=== PATIENT | male | born 2000 | race Caucasian/White ===

== ENCOUNTER 2021-01-08 18:35 | Observation (INO) ==
[2021-01-08] MEDS ORDERED: AMPICILLIN/SULBACTAM SOD 3,000 MG in 0.9 % SODIUM CHLORIDE 100 ML IV STA (22:31)
[2021-01-08] MEDS ORDERED: dexAMETHasone**PF** 10 MG/ML VIAL IV ONE (22:31)
[2021-01-08] MEDS ORDERED: KETOROLAC 30 MG/ML VIAL IV STA (22:31)
--- NOTE | 2021-01-08 22:34 | Emergency Department Note ---
History of Present Illness General Chief complaint: Neck Injury/Pain Stated complaint: SWELLING OF NECK AFTER FINISHING STEROID Time Seen by Provider: 01/08/21 22:20 History of Present Illness Maximum Pain Intensity: 7 This is a 20-year-old male presenting to the emergency department for evaluation of worsening right-sided neck swelling. The patient reports that he had a diagnosis of mono 2 weeks ago. He developed right-sided swelling to the neck, and was seen at an emergency room closer to home in [place] as it was [facility]. The patient was transferred to [facility] where he was admitted. During his inpatient stay he did have CT scan of the neck which evidently showed a necrotic mass. They did aspirate this and sent for culture, but the patient has not been contacted with any culture results. The patient did improve after the hospitalization with oral Augmentin and steroids. He finished the steroids yesterday and now his swelling has returned. He has not had distinct fever or difficulty swallowing. No chest or abdominal pain is reported. He rates his current discomfort a 7/10. Home Medications Medication Instructions Recorded Confirmed Type Amoxicillan Clavulanic Acid 1 tab PO BID 01/09/21 01/09/21 History ibuprofen 200 mg tablet 400 mg PO Q6H PRN 01/09/21 01/09/21 History Allergies Allergy/AdvReac Type Severity Reaction Status Date / Time No Known Allergies Allergy Unverified 01/09/21 01:59 Past Med/Surg History Medical History No chronic diseases present Surgical History No significant past surgical history Social History Smoking Status: Never smoker Preferred Language: Peruvian Feels Safe at Home: Yes Review of Systems A total of 10 systems reviewed and were otherwise negative Physical Exam Vital Signs Vital Signs - 24 hr 01/08/21 18:40 01/08/21 22:24 01/08/21 23:27 Temperature 36.6 C Temperature Source Temporal Artery Scan Pulse Rate 90 Pulse Rate [Finger] 114 H 81 Pulse Rhythm Regular Pulse Strength Normal Respiratory Rate 20 18 18 Respiratory Effort / Characteristics Non-Labored Spontaneous Non-Labored Spontaneous Respiratory Depth Normal Normal Respiratory Pattern Regular Blood Pressure 126/56 L Blood Pressure [Right Arm] 126/73 126/64 Blood Pressure Mean 79 Blood Pressure Mean [Right Arm] 90 84 Blood Pressure Position Sitting Pulse Oximetry 99 94 97 Oxygen Delivery Method Room Air Room Air Room Air Sepsis Recent Fever Within 48 Hours No Sepsis New/Unexplained Change in Mental Status No Sepsis Action Taken by Nursing No Action Required 01/09/21 00:26 01/09/21 02:18 Temperature Temperature Source Pulse Rate Pulse Rate [Finger] 75 65 Pulse Rhythm Pulse Strength Respiratory Rate 20 16 Respiratory Effort / Characteristics Non-Labored Spontaneous Respiratory Depth Normal Normal Respiratory Pattern Blood Pressure Blood Pressure [Right Arm] 135/63 124/62 Blood Pressure Mean Blood Pressure Mean [Right Arm] 87 82 Blood Pressure Position Pulse Oximetry 96 95 Oxygen Delivery Method Room Air Room Air Sepsis Recent Fever Within 48 Hours Sepsis New/Unexplained Change in Mental Status Sepsis Action Taken by Nursing VITALS: Vitals are noted on the nurse's note and reviewed by myself. Vital signs stable. GENERAL: Well-developed, well-nourished, white male, who is in no acute distress and resting comfortably. Patient is cooperative with the examination. HEAD: Normocephalic atraumatic. MOUTH: Mucous membranes moist. Tonsils are not enlarged. Pharynx without erythema, blood, or exudate. Uvula midline. Airway patent. NECK: Very impressive swelling/mass to the right lateral and anterior aspect of the neck. This is somewhat firm and mildly tender without significant erythema. HEART: Regular rate and rhythm without murmurs gallops or rubs. LUNGS: Clear to auscultation bilaterally without wheezes, rales or rhonchi. No retractions or accessory muscle use. ABDOMEN: Positive normal bowel sounds x 4. Soft, nontender, without masses or organomegaly. No guarding or rebound tenderness. MUSCULOSKELETAL: No muscle atrophy, erythema, or edema noted. Full range of motion in all extremities. NEURO: Patient was alert and oriented to person place and time. CN II through XII grossly intact. Course Administered Medications Discontinued Medications Dexamethasone Sodium Phosphate (DexamethasonePf 10 Mg/Ml Vial) 10 mg IV NOW ONE Stop: 01/08/21 22:32 Last Admin: 01/08/21 23:17 Dose: 10 mg Documented by: [id number] Ampicillin Sodium/Sulbactam Sodium 3,000 mg/ Sodium Chloride 108 mls @ 200 mls/hr IV NOW STA; Protocol Stop: 01/08/21 23:03 Last Infusion: 01/09/21 00:09 Dose: 0 mls/hr Documented by: [id number] Admin: 01/08/21 23:24 Dose: 200 mls/hr Documented by: [id number] Sodium Chloride (Nss 1000ml) 1,000 mls @ 999 mls/hr IV .Q1H1M RANJAN Stop: 01/09/21 00:32 Last Infusion: 01/09/21 01:30 Dose: 0 mls/hr Documented by: [id number] Admin: 01/09/21 00:26 Dose: 999 mls/hr Documented by: [id number] Infusion: 01/09/21 00:17 Dose: 999 mls/hr Documented by: [id number] Admin: 01/08/21 23:16 Dose: 999 mls/hr Documented by: [id number] Ioversol (Optiray 320 100ml) 95 ml IV ONCE ONE Stop: 01/09/21 00:15 Last Admin: 01/09/21 00:08 Dose: 95 ml Documented by: [id number] Ketorolac Tromethamine (Ketorolac 30 Mg/Ml Vial) 30 mg IV NOW STA Stop: 01/08/21 22:32 Last Admin: 01/08/21 23:18 Dose: 30 mg Documented by: [id number] Medical Decision Making Differential Diagnosis Differential diagnosis includes: Etiologies such as cellulitis, abscess, osteomyelitis, MRSA infection, DVT, ne crotizing fasciitis, dermatitis, drug eruption, as well as others were entertained Laboratory Data Result diagrams: 01/08/21 23:02 01/08/21 23:02 Lab Results 01/08/21 01/08/21 01/08/21 Range/Units 23:02 23:02 23:02 WBC 17.06 H (4.8-10.8) K/uL RBC 4.91 (4.7-6.1) M/uL Hgb 14.3 (14.0-18.0) g/dL Hct 43.9 (42-52) % MCV 89.4 (80-100) fL MCH 29.1 (25-34) pg MCHC 32.6 (32-36) g/dL RDW Std Deviation 41.7 (36.4-46.3) fL RDW Coeff of Fitz 12.8 (11.5-14.5) % Plt Count 347 (130-400) K/uL MPV 9.2 (7.4-10.4) fL Neutrophils % (Manual) 71.9 % Lymphocytes % (Manual) 5.3 % Reactive Lymphs % (Man) 14.0 % Monocytes % (Manual) 6.1 % Eosinophils % (Manual) 1.8 % Basophils % (Manual) 0.9 % Neutrophils # (Manual) 12.27 H (1.4-6.5) K/uL Total Absolute Neuts 12.27 H (1.4-6.5) K/uL Lymphocytes # (Manual) 0.90 L (1.2-3.4) K/uL Reactive Lymphs # 2.39 K/uL Total Abs Lymphocytes 3.29 (1.2-3.4) K/uL Monocytes # (Manual) 1.04 H (0.11-0.59) K/uL Eosinophils # (Manual) 0.31 (0-0.5) K/uL Basophils # (Manual) 0.15 (0-0.2) K/uL RBC Morphology Unremarkable Sodium 135 L (136-145) mmol/L Potassium 3.9 (3.5-5.1) mmol/L Chloride 102 (98-107) mmol/L Carbon Dioxide 26 (21-32) mmol/L Anion Gap 7.0 (3-11) BUN 12 (7-18) mg/dl Creatinine 0.88 (0.6-1.4) mg/dl Est Cr Clr Drug Dosing 155.8 ml/min Est GFR ( Amer) 144.3 ml/min Est GFR (Non-Af Amer) 124.5 ml/min BUN/Creatinine Ratio 13.4 (10-20) Glucose 92 (70-99) mg/dl Lactate 1.3 (0.4-2.0) mmol/L Calcium 9.7 (8.5-10.1) mg/dl Total Bilirubin 0.3 (0.2-1) mg/dl AST 10 L (15-37) U/L ALT 25 (12-78) Alkaline Phosphatase 92 (45-117) U/L Total Protein 8.9 H (6.4-8.2) gm/dl Albumin 3.7 (3.4-5.0) gm/dl Globulin 5.2 H (2.5-4.0) gm/dl Albumin/Globulin Ratio 0.7 L (0.9-2) TSH 3.940 (0.300-4.500) uIu/ml Monoscreen (Negative) SARS-CoV-2, RNA, NAAT (NEGATIVE) 01/08/21 01/09/21 Range/Units 23:02 02:19 WBC (4.8-10.8) K/uL RBC (4.7-6.1) M/uL Hgb (14.0-18.0) g/dL Hct (42-52) % MCV (80-100) fL MCH (25-34) pg MCHC (32-36) g/dL RDW Std Deviation (36.4-46.3) fL RDW Coeff of Fitz (11.5-14.5) % Plt Count (130-400) K/uL MPV (7.4-10.4) fL Neutrophils % (Manual) % Lymphocytes % (Manual) % Reactive Lymphs % (Man) % Monocytes % (Manual) % Eosinophils % (Manual) % Basophils % (Manual) % Neutrophils # (Manual) (1.4-6.5) K/uL Total Absolute Neuts (1.4-6.5) K/uL Lymphocytes # (Manual) (1.2-3.4) K/uL Reactive Lymphs # K/uL Total Abs Lymphocytes (1.2-3.4) K/uL Monocytes # (Manual) (0.11-0.59) K/uL Eosinophils # (Manual) (0-0.5) K/uL Basophils # (Manual) (0-0.2) K/uL RBC Morphology Sodium (136-145) mmol/L Potassium (3.5-5.1) mmol/L Chloride (98-107) mmol/L Carbon Dioxide (21-32) mmol/L Anion Gap (3-11) BUN (7-18) mg/dl Creatinine (0.6-1.4) mg/dl Est Cr Clr Drug Dosing ml/min Est GFR ( Amer) ml/min Est GFR (Non-Af Amer) ml/min BUN/Creatinine Ratio (10-20) Glucose (70-99) mg/dl Lactate (0.4-2.0) mmol/L Calcium (8.5-10.1) mg/dl Total Bilirubin (0.2-1) mg/dl AST (15-37) U/L ALT (12-78) Alkaline Phosphatase (45-117) U/L Total Protein (6.4-8.2) gm/dl Albumin (3.4-5.0) gm/dl Globulin (2.5-4.0) gm/dl Albumin/Globulin Ratio (0.9-2) TSH (0.300-4.500) uIu/ml Monoscreen Positive A (Negative) SARS-CoV-2, RNA, NAAT NEGATIVE (NEGATIVE) Imaging Data Radiologist's Impression: Preliminary Findings Only See Final Report For Complete Findings CT NECK: Impression: Enlarged right sternocleidomastoid muscle with internal rim-enhancing fluid collection measuring 4.1 x 4.5 x 5.7 cm. This most likely represents myositis with an intramuscular abscess. Clinical correlation is recommended. Cervical lymphadenopathy is seen bilaterally, right greater than left. There is mass effect in the right internal jugular vein which appears patent. However, the right external jugular vein is not well seen which may be related to compression or occlusion/thrombophlebitis. The airway is widely patent. Radiologist:Yordy Castro, [facility]:[phone] [facility] Narrative Physical exam and history were performed. Nursing notes, EMR, and Medication List were personally reviewed. Patient appears to have impressive swelling of the right side of his neck. He has been seen at multiple hospitals for this, and his symptoms seem to have worsened after he completed a Medrol Dosepak yesterday. IV access was esta blished and labs were obtained. He was hydrated with normal saline and given IV Toradol and IV Decadron. He was treated with IV Unasyn as well. Blood cultures were gathered. Case was discussed with my attending physician, Dr. Jackson, and patient was sent to CT scan for further evaluation. Patient's blood work is as above and was reviewed. He does have an elevated white blood cell count of 17,000. He does not have significant anemia or gross electrolyte imbalance. Coffee is positive. Covid is negative. Remaining blood work is fairly unremarkable. CT scan is as above and was reviewed by myself and radiology. He essentially has what seems to be a rim-enhancing 4 x 4.5 x 6 cm fluid collection concerning for abscess. Based on his information from [facility], this seems to be an increase from where he was about a week ago. I did discuss the case with on-call ENT, Dr. Goodwin, and no emergent procedural intervention is felt to be necessary at this time. Overall the patient does not appear well for discharge. He does have what is concerning for a right-sided abscess in the neck that is increasing in size despite outpatient Augmentin and steroids. The case was discussed with the on-call hospitalist team who did agree to evaluate the patient here in the department. Please see their dictation for further patient course, plan, disposition. The chart was completed utilizing be2 Speech Voice Recognition Software. Grammatical errors, random word insertions, pronoun errors, and incomplete sentences are an occasional consequence of this system due to software limitations, ambient noise, and hardware issues. Any formal questions or concerns about the content, text, or information contained within the body of this dictation should be directly addressed to the provider for clarification. . Impression & Plan Abscess of neck, Infectious mononucleosis, Neck swelling Discharge Plan Visit Data Chief Complaint: Neck Injury/Pain Stated Complaint: SWELLING OF NECK AFTER FINISHING STEROID ED Provider: Edu Jackson ED Midlevel Provider: Kalpesh Collado Discharge Problem: Abscess of neck, Infectious mononucleosis, Neck swelling Forms Stand Alone Forms: My [facility] Prescriptions Prescriptions: No Action Amoxicillan Clavulanic Acid 1 tab PO BID RF: 0 ibuprofen 200 mg Tablet 400 mg PO Q6H PRN (Reason: Pain) RF: 0 Referrals Referrals: PCP,NO [Physician] -
[2021-01-08 23:14] LABS: Hematocrit (blood only) 43.9 % (42-52); Hemoglobin 14.3 g/dL (14.0-18.0); Mean Corpuscular Hemoglobin 29.1 pg (25-34); Mean Corpuscular Hgb Conc 32.6 g/dL (32-36); Mean Corpuscular Volume 89.4 fL (80-100); Mean Platelet Volume 9.2 fL (7.4-10.4); Platelet Count 347 K/uL (130-400); RDW Coefficient of Variation 12.8 % (11.5-14.5); RDW Standard Deviation 41.7 fL (36.4-46.3); Red Blood Count 4.91 M/uL (4.7-6.1); White Blood Count 17.06 K/uL (4.8-10.8)
[2021-01-08] MEDS: SODIUM CHLORIDE 0.9% 1000ML 1,000 ML IV SCH (23:16)
[2021-01-08 23:34] LABS: Albumin Level 3.7 gm/dl (3.4-5.0); BUN Creatinine Ratio 13.4 (10-20); Calcium 9.7 mg/dl (8.5-10.1); Creatinine Clr Calc Pharmacy 155.8 ml/min; Est GFR (African American) 144.3 ml/min; Est GFR (Non-African American) 124.5 ml/min; Potassium 3.9 mmol/L (3.5-5.1)
[2021-01-08 23:44] LABS: Albumin Globulin Ratio 0.7 (0.9-2); Bilirubin,Total 0.3 mg/dl (0.2-1); Globulin 5.2 gm/dl (2.5-4.0); Thyroid Stimulating Hormone 3.94 uIu/ml (0.300-4.500); Total Protein 8.9 gm/dl (6.4-8.2)
[2021-01-09] MEDS ORDERED: OPTIRAY 320 100ml IV ONE (00:14)
[2021-01-09] MEDS: SODIUM CHLORIDE 0.9% 1000ML 1,000 ML IV SCH ×3 (00:26→21:22)
[2021-01-09 01:34] LABS: ALC (manual) 3.29 K/uL (1.2-3.4); ANC (manual) 12.27 K/uL (1.4-6.5); Basophils # (manual) 0.15 K/uL (0-0.2); Basophils % (manual) 0.9 %; Eosinophils # (manual) 0.31 K/uL (0-0.5); Eosinophils % (manual) 1.8 %; Lymphocytes % (manual) 5.3 %; Monocytes # (manual) 1.04 K/uL (0.11-0.59); Monocytes % (manual) 6.1 %; Neutrophils # (manual) 12.27 K/uL (1.4-6.5); Neutrophils % (manual) 71.9 %; RBC Morphology Unremarkable; Reactive Lymphocytes # (manual) 2.39 K/uL
--- NOTE | 2021-01-09 01:59 | History & Physical Report ---
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 - Soft Tissue Neck CT showing a 4.1 x 4.5 x 5.7cm mass consistent with a myositis of the R sternocleidomastoid with adjacent abscess. This is larger in size compared to when measured via CT scan at [facility] 1 week ago. - etiology of abscess uncertain - patient did test positive for mono, however a bacterial co-infection would likely be only explanation for a related abscess. Strep Throat swab ordered on admission. - ENT consult placed for planning of excision - continue Unasyn for aerobic coverage - solu-Medrol 40mg q12 - warm compresses ordered for application to neck - tylenol and toradol prn for analgesic (2) Mononucleosis: Plan: - positive on admission - denies any ongoing symptoms - supportive care (3) Leukocytosis: Plan: - WBC elevated to 17 - differential ordered on admission - secondary to acute infection (viral vs. bacterial) vs. 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 Of note, he is from the [place], [place] area. While at home over the break, he went to the [place] emergency department for general malaise and a right neck swelling. Due to being low staffed on a holiday week, he was sent to [facility] for further evaluation. At [facility], he did test positive for mononucleosis. A cat scan of his neck was obtained which showed a 3 x 3 x 4 cm mass. Law says a provider aspirated the mass - and only a small amount of green-tinted fluid came out. It was sent for culture - but he was never notified of a positive result. He was sent out on a course of Augmentin, which he has been taking as directed. He was also sent out on a Medrol dose pack, which ran out on 01/06/21. He returned to [employer] for the resumption of classes. Law states that in the days since he stopped the Medrol - the R neck mass has slowly been enlarging and become progressively uncomfortable. He denies an difficulty breathing. He does report pain with swallowing, although he says food passes just fine (ie it does not get stuck). He has not had any fever/chills, cough/congestion or rashes. In the ED, he was afebrile with normal HR, BP and breathing. His WBC was elevated to 17 - however no differential was obtained. Hgb and platelets were WNL. Coags WNL. Monospot positive. Blood cultures obtained. Neck CT showed a 4.1 x 4.5 x 5.7cm mass consistent with a myositis of the R sternocleidomastoid with adjacent abscess. There was associated cervical LAD. Mass effect of the R internal jugular vein was noted, although it was patent. Does not appear to be communicating with mastoid or medistinum. He was given a dose of IV Unasyn, Toradol 30mg, Decadron 10mg and 1 liter of NSS. The ED provider spoke with ENT Dr. Goodwin who said the abscess would likely need excised, although not urgently. He was admitted for airway surveillance. Allergies Allergy/AdvReac Type Severity Reaction Status Date / Time No Known Allergies Allergy Unverified 01/09/21 01:59 Home Medications Medication Instructions Recorded Confirmed Type Amoxicillan Clavulanic Acid 1 tab PO BID 01/09/21 01/09/21 History ibuprofen 200 mg tablet 400 mg PO Q6H PRN 01/09/21 01/09/21 History Past Med/Surg History Medical History No chronic diseases present Surgical History No significant past surgical history Social History Smoking Status: Never smoker Hx Alcohol Use: Yes Hx Substance Use: No Preferred Language: Polish Communication Ability: Effective Plastic Technician Required: No Beliefs That Will Affect Care: None Current Living Situation: Other Current Living Situation Comment: [facility] Feels Safe at Home: Yes Safety Concerns: Feels Safe At This Time Review of Systems Review of Systems: All systems reviewed & are unremarkable except as noted in HPI & below Physical Exam Constitutional: WD/WN, vitals as above cooperative; no acute distress Eyes: PERRL, conjunctivae normal, anicteric sclerae ENMT: external ear and nose normal, oropharynx normal Neck: trachea midline; no tracheal deviation + R neck mass; firm in texture, not draining. No overlying erythema. No crepitus. Tender to palpation Respiratory: normal respiratory effort, lungs clear to auscultation no cough Cardiovascular: RRR, no murmur, no edema Heart Sounds: normal S1 and normal S2 Extremities: no pedal edema Chest (Breasts): Additional Comments: + pectus excavatum Gastrointestinal (Abdomen): normal bowel sounds, soft, nontender, no hepatosplenomegaly Musculoskeletal: Head/Neck/Chest: normocephalic and head atraumatic Skin: no rashes, warm and dry Neurologic: moves all extremities Psychiatric: A+Ox3, euthymic affect Results & Data Results & Data ([facility]) Vital Signs (Past 12 Hours) Vital Signs Temp Pulse Pulse Resp BP BP Pulse Ox 01/09/21 00:26 75 20 135/63 96 01/08/21 23:27 81 18 126/64 97 01/08/21 22:24 114 H 18 126/73 94 01/08/21 18:40 36.6 C 90 20 126/56 L 99 Supervising Physician Co-Signing Physician Notes Patient seen and examined on day of admission, chart reviewed, case discussed with Dr. Argueta and I agree with the assessment and plan as above. Patient is a 20yo male with right neck swelling - thought to be secondary to abscess in setting of mono infection On exam he is afebrile, HD stable, non-toxic in appearance Skin - warm, dry, intact, no rashes or lesions HEENT - NC/AT, PERRL, neck swelling on right side with fluctuance, mild tenderness. Trachea is midline. Heart - +S1/S2, regular, no m/r/g Lungs - CTA Abd - +BS, soft, NT/ND Ext - No edema labs and images reviewed. Abscess has increased in size from prior imaging despite recent antibiotics and steroids Assessment/Plan - patient non-toxic, no airway or structural compromise. ?Abscess. Concerning that has increased in size despite recent antibiotics and steroids -Observation -Unasyn, Steroids -ENT consultation appreciated - ?biopsy, drainage in AM -REmainder of plan as above Resident Activity Tracking Resident Involvement: Resident Care Provided Care Provided: Adult Hospital Medicine
[2021-01-09] MEDS ORDERED: ACETAMINOPHEN 325 MG TAB PO PRN (04:57)
[2021-01-09] MEDS ORDERED: ONDANSETRON INJ 2 MG/ML 2 ML VIAL IV PRN (04:57)
[2021-01-09] MEDS ORDERED: POLYETHYLENE (MIRALAX) 17 GM PACK PO PRN (04:57)
[2021-01-09] MEDS ORDERED: KETOROLAC 30 MG/ML VIAL IV PRN (04:57)
[2021-01-09] MEDS: AMPICILLIN/SULBACTAM SOD 3,000 MG in 0.9 % SODIUM CHLORIDE 100 ML IV SCH ×4 (06:03→23:48)
[2021-01-09] MEDS: methylPREDNISolone 40 MG in SYRINGE 0 ML IV SCH ×2 (08:26→21:22)
[2021-01-09 09:40] LABS: Basophils # (auto) 0.03 K/uL (0-0.2); Basophils % (auto) 0.2 %; Hematocrit (blood only) 42.4 % (42-52); Hemoglobin 13.8 g/dL (14.0-18.0); Immature Granulocytes % (auto) 0.6 %; Lymphocytes # (auto) 1.36 K/uL (1.2-3.4); Lymphocytes % (auto) 8.7 %; Mean Corpuscular Hemoglobin 29.2 pg (25-34); Mean Corpuscular Hgb Conc 32.5 g/dL (32-36); Mean Corpuscular Volume 89.6 fL (80-100); Mean Platelet Volume 9.5 fL (7.4-10.4); Monocytes # (auto) 0.57 K/uL (0.11-0.59); Monocytes % (auto) 3.7 %; Neutrophils # (auto) 13.51 K/uL (1.4-6.5); Neutrophils % (auto) 86.8 %; Platelet Count 369 K/uL (130-400); RDW Coefficient of Variation 12.6 % (11.5-14.5); RDW Standard Deviation 41.6 fL (36.4-46.3); Red Blood Count 4.73 M/uL (4.7-6.1); White Blood Count 15.57 K/uL (4.8-10.8)
--- NOTE | 2021-01-09 10:06 | CT Scan Report ---
CT soft tissue neck w con HISTORY: Right side neck mass. Hx mono. TECHNIQUE: Multiaxial CT images of the neck were performed following the use of intravenous contrast and reformatted in the sagittal and coronal plane. COMPARISON STUDY: None. FINDINGS: There is a lobular peripheral enhancing fluid collection within the right side of the neck which appears to be primarily located within the right sternocleidomastoid muscle. This measures appr oximately 6.4 x 4.4 x 3.8 cm. This likely represents an abscess. There is significant surrounding inf lammatory change/edema within the right side of the neck as well as bilateral cervical lymphadenopath y, right greater than left. The dominant right cervical lymph node on image 55 measures 2.7 cm. There is mass effect from the abscess resulting in partial compression of the right internal jugular vein. However, this does not appear to involve or result in thrombosis of the internal jugular vein. The c arotid arteries are widely patent. Mild hypertrophy of the adenoid tonsils. No significant mass effec t or deviation of the airway. Airway appears patent. Prevertebral soft tissues and epiglottis are nor mal in thickness. The thyroid gland enhances normally. The parotid and submandibular glands enhance s ymmetrically. The visualized brain parenchyma and orbits are unremarkable. The lung apices are clear. No fractures within the visualized osseous structures. Right external jugular vein is not well opaci fied. IMPRESSION: 1. A 6.4 x 4.4 x 3.8 cm fluid collection within the right side the neck which primarily involves the sternocleidomastoid muscle. This likely represents an abscess. A necrotic mass or infected branchial cleft cyst is considered less likely but not entirely excluded. 2. Bilateral cervical lymphadenopathy, right greater than left. This is likely reactive. 3. Mild hypertrophy of the adenoid tonsils. ACT 112: Negative or not required by law. Electronically signed by: Efren Hung M.D. 01/09/2021 10:04 AM
--- NOTE | 2021-01-09 14:26 | Hospitalist Progress Note ---
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 1) Neck Abscess -presented to ER with enlarging right neck mass -records from [facility] requested -Soft Tissue Neck CT (12/31): necrotic soft tissue mass exerting mass effect on superficial and deep venous structures, partially indistinguishable from SCM, necrotic portion measures 3.9x2.8x3.6 cm. -Soft Tissue Neck CT (01/08): 4.1 x 4.5 x 5.7cm mass consistent with a myositis of the R sternocleidomastoid with adjacent abscess. -etiology of abscess uncertain; recent positive monospot, however, a bacterial co-infection would likely be only explanation for a related abscess. -ENT consult: 1cc pus obtained from needle aspiration, cultures sent; cont IV abx with further evaluation tomorrow, possible I&D monday -continue Unasyn for aerobic coverage -solu-Medrol 40mg q12 -warm compresses ordered for application to neck -tylenol and toradol prn for analgesic -NPO in case of operation, started NSS 2) Mononucleosis -positive on admission -denies any ongoing symptoms -supportive care 3) Leukocytosis - WBC 17 - ddx secondary to acute infection (viral vs. bacterial) vs. steroid use - strep negative - blood cultures pending - continue IV Unasyn for anti-microbial coverage - trend CBC DVT ppx: SCD FEN/GI: NSS, NPO Code Status: Full Dispo: med/surg (2) Mononucleosis: (3) Leukocytosis: Admission and Anticipated Discharge Date Admission Date: January 09, 2021 Supervising Physician Co-Signing Physician Notes Patient seen and examined with PGY 1 Dr. Menjivar. Agree with history, exam findings, assessment and plan of care as outlined. In brief, Law is a 20-year-old [employer] student admitted with possible abscess in the right sternocleidomastoid muscle. We reviewed his outside records that he had brought with him. He reports that he does have some pain in that right side of the neck especially with turning and moving his head. The pain seems to stretch from the occiput to the sternoclavicular joint. Denies fevers, chills. Denies sore throat, chest pain or dyspnea. Denies any dysphagia. Vital signs and nursing notes reviewed. Nontoxic-appearing. There is obvious asymmetry on the right side of the neck with swelling and mild overlying erythema of the right sternocleidomastoid muscle. There is a small fluctuant area in the mid part of the sternocleidomastoid. Right submandibular tender lymphadenopathy and tender lymph node right beneath the right sternocleidomastoid muscle. Labs and imaging reviewed. 1. Possible abscess of the right sternocleidomastoid muscle. He has been seen by ENT and was only able to obtain a small amount of pus with needle aspiration to the area. Possibly this is a phlegmon and not a true abscess. At [facility], where he was previously seen for this same issue, the culture initially showed gram-negative bacilli but final culture with no growth. We will continue with IV Unasyn and Solu-Medrol. Appreciate ENT recommendations. 2. Recent mononucleosis infection. Unclear if this is directly related. 3. Leukocytosis. This is likely more related to the steroids that he is getting rather than true systemic infection. However, we will continue with antibiotics until we are able to determine whether the swollen area in the sternocleidomastoid is infectious or not. Dispo: pending clinical improvement. Subjective Patient seen at bedside. Was able to eat his breakfast this morning without complaints. In good spirits, would like to know when surgery would happen if necessary. No difficulty swallowing. Mild pain near abscess site when turning head to either side, otherwise no complaints. Review of Systems Review of Systems: All systems reviewed & are unremarkable except as noted in HPI & below Constitutional: denies fevers, chills HEENT: denies congestion, sore throat CV: denies chest pain, palpitations Resp: denies shortness of breath, cough GI: denies abdominal pain, nausea, vomiting, constipation, diarrhea : denies pain with urination, change in urinary frequency Physical Exam Constitutional: WD/WN, vitals as above cooperative; no acute distress Eyes: PERRL, conjunctivae normal, anicteric sclerae Neck: trachea midline; no tracheal deviation Respiratory: normal respiratory effort, lungs clear to auscultation no cough Cardiovascular: RRR, no murmur, no edema Heart Sounds: normal S1 and normal S2 Gastrointestinal (Abdomen): normal bowel sounds, soft, nontender, no hepatosplenomegaly Musculoskeletal: Head/Neck/Chest: normocephalic and head atraumatic Skin: soft tissue fluctuant mass along right SCM, non erythematous, no drainage, not warm to touch Neurologic: moves all extremities Psychiatric: A+Ox3, euthymic affect Results & Data Results & Data ([facility]) Vital Signs (Past 12 Hours) Vital Signs Temp Pulse Resp BP Pulse Ox 01/09/21 04:45 36.3 C L 60 16 118/67 96 01/09/21 04:25 71 20 137/66 96 Resident Activity Tracking Resident Involvement: Resident Care Provided Care Provided: Adult Hospital Medicine
--- NOTE | 2021-01-09 16:35 | ENT Consultation ---
Date of Consultation January 09, 2021 Assessment & Plan (1) Abscess of neck: I needle aspirated right neck but only obtained 1 drop of pus. More likely a phlegmon. The patient states that they did obtain 1 cc of [address] [facility]. Culture did initially show gram-negative bacilli but final culture showed no growth. (2) Infectious mononucleosis: I suspect he has a cluster of matted lymph node in the right neck with formation of phlegmon, necrotic center with minimal amount of pus. In that he is completely alert and oriented and not toxic at all with no fever I would wait another 24 hours to see if he responds to IV Unasyn and Solu-Medrol. I did discuss incision and drainage of right neck which then would require packing with iodoform gauze and frequent change of packing. At this time we will hold off on surgery. History of Present Illness Reason for Consultation: Right neck mass. 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 He was hospitalized at [place] and then transferred to [facility] on last week, treated with IV antibiotics for right neck swelling/abscess. They did perform needle aspiration which showed gram-negative bacilli but no growth and that the culture was after IV antibiotics. Did not appear to have cytology. He was treated and released same day. He did have acute viral type illness December 24 with fever and chills and sore throat consistent with mono and then infectious mono spot showed positive. He continues to have right neck swelling, improved after release from [facility], but again has swelling and redness of the right neck. CT scan in the emergency room showed increased size of the right neck mass with phlegmon/abscess and he was admitted for IV antibiotics. Allergies Allergy/AdvReac Type Severity Reaction Status Date / Time No Known Allergies Allergy Unverified 01/09/21 01:59 Home Medications Medication Instructions Recorded Confirmed Type Amoxicillan Clavulanic Acid 1 tab PO BID 01/09/21 01/09/21 History ibuprofen 200 mg tablet 400 mg PO Q6H PRN 01/09/21 01/09/21 History Patient History Medical History No chronic diseases present Surgical History No significant past surgical history Social History Smoking Status: Never smoker Hx Alcohol Use: Yes Hx Substance Use: No Preferred Language: Kyrgyz Communication Ability: Effective Mover Required: No Beliefs That Will Affect Care: None Current Living Situation: Other Current Living Situation Comment: [facility] Feels Safe at Home: Yes Safety Concerns: Feels Safe At This Time Physical Exam Constitutional: WD/WN, vitals as above (Coherent cooperative and oriented x3, conversing with his brother, no acute) Eyes: PERRL, conjunctivae normal, anicteric sclerae ENMT: external ear and nose normal, oropharynx normal Mouth: + oropharynx abnormality (Tonsils are small 2+ symmetric) Neck: trachea midline Matted 6 cm lymph node under the right sternocleido mastoid with small area of separation in the center. Needle aspiration only obtained 1 drop of pus for culture. No sign of large abscess. Respiratory: normal respiratory effort, lungs clear to auscultation Cardiovascular: RRR, no murmur, no edema Results & Data ([facility]) Vital Signs (Past 12 Hours) Vital Signs Temp Pulse Resp BP Pulse Ox 01/09/21 04:45 36.3 C L 60 16 118/67 96 Laboratory Results Elevated white count Diagnostic Findings CT showed right neck phlegmon/abscess Medications Administered On Unasyn and Solu-Medrol
--- NOTE | 2021-01-09 16:36 | Operative Report ---
PG Post Operative Report Pre & Post Diagnosis Right neck abscess I identified the patient and participated in the time-out.: Yes Procedure Needle aspiration Surgeon Umm Goodwin MD Electrician Constructor Supervisor None Estimated Blood Loss 0 Findings Consistent with Post-Op Diagnosis 1 drop of pus obtained no large abscess Specimens Culture of pus obtained Anesthesia Type None Complications None Description of Procedure I prepped the skin with alcohol. I used 18-gauge needle to aspirate the right neck abscess. Only 1 drop of pus was obtained. This is most likely a phlegmon. Will observe for response to IV antibiotics and Solu-Medrol over the next 24 hours. I attest to the content of the Intraoperative Record and any orders documented therein. Any exceptions are noted below.
--- NOTE | 2021-01-10 01:28 | Billing Data ---
Date of Service January 09, 2021 Coding Level of Care Code INT OBSERVATION CARE 50M LVL 2
[2021-01-10] MEDS: AMPICILLIN/SULBACTAM SOD 3,000 MG in 0.9 % SODIUM CHLORIDE 100 ML IV SCH ×4 (05:32→23:30)
[2021-01-10 07:58] LABS: Basophils # (auto) 0.03 K/uL (0-0.2); Basophils % (auto) 0.1 %; Hematocrit (blood only) 38.4 % (42-52); Hemoglobin 12.4 g/dL (14.0-18.0); Immature Granulocytes # (auto) 0.08 K/uL (0.00-0.02); Immature Granulocytes % (auto) 0.4 %; Lymphocytes # (auto) 2.03 K/uL (1.2-3.4); Lymphocytes % (auto) 9.9 %; Mean Corpuscular Hemoglobin 28.8 pg (25-34); Mean Corpuscular Hgb Conc 32.3 g/dL (32-36); Mean Corpuscular Volume 89.1 fL (80-100); Mean Platelet Volume 9.6 fL (7.4-10.4); Monocytes # (auto) 1.09 K/uL (0.11-0.59); Monocytes % (auto) 5.3 %; Neutrophils # (auto) 17.28 K/uL (1.4-6.5); Neutrophils % (auto) 84.3 %; Platelet Count 315 K/uL (130-400); RDW Coefficient of Variation 12.6 % (11.5-14.5); RDW Standard Deviation 41.4 fL (36.4-46.3); Red Blood Count 4.31 M/uL (4.7-6.1); White Blood Count 20.51 K/uL (4.8-10.8)
[2021-01-10 08:37] LABS: BUN Creatinine Ratio 16.7 (10-20); Blood Urea Nitrogen 11 mg/dl (7-18); Calcium 9.1 mg/dl (8.5-10.1); Carbon Dioxide 25 mmol/L (21-32); Chloride 109 mmol/L (98-107); Creatinine Clr Calc Pharmacy 212.7 ml/min; Est GFR (African American) > 150.0 ml/min; Est GFR (Non-African American) 141.9 ml/min; Glucose 135 mg/dl (70-99); Potassium 4.1 mmol/L (3.5-5.1); Sodium 141 mmol/L (136-145)
[2021-01-10] MEDS: methylPREDNISolone 40 MG in SYRINGE 0 ML IV SCH ×2 (08:51→21:30)
--- NOTE | 2021-01-10 09:41 | Ears,Nose,Throat Progress Note ---
Date of Service January 10, 2021 Assessment & Plan (1) Infectious mononucleosis: Plan: This is most likely matted lymph nodes from infectious mono with necrotic center. No growth so far. If he continues to improve, I would continue medical treatment with IV then p.o. antibiotics. (2) Abscess of neck: (3) Leukocytosis: Admission and Anticipated Discharge Date Admission Date: January 09, 2021 Subjective This 20-year-old [employer] student continues to improve. Not febrile. Not toxic. Able to eat. Less tenderness right neck. Physical Exam Constitutional: WD/WN, vitals as above Eyes: PERRL, conjunctivae normal, anicteric sclerae ENMT: external ear and nose normal, oropharynx normal Neck: + anterior neck swelling Right neck mass down to 4 cm, less tender, still a small area of fluctuance in the center, most likely matted nodes with necrotic center Results & Data ([facility]) Vital Signs (Past 12 Hours) Vital Signs Temp Pulse Resp BP Pulse Ox 01/10/21 07:32 36.4 C L 61 18 109/62 97 01/09/21 22:07 36.9 C 83 17 122/67 99 Laboratory Results Gram stain showed no organisms, cultures no growth 24 hours
--- NOTE | 2021-01-10 10:00 | Hospitalist Progress Note ---
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 1) Neck Abscess -presented to ER with enlarging right neck mass -records from [facility] requested -Soft Tissue Neck CT (12/31): necrotic soft tissue mass exerting mass effect on superficial and deep venous structures, partially indistinguishable from SCM, necrotic portion measures 3.9x2.8x3.6 cm. -Soft Tissue Neck CT (01/08): 4.1 x 4.5 x 5.7cm mass consistent with a myositis of the R sternocleidomastoid with adjacent abscess. -etiology of abscess uncertain; recent positive monospot, however, a bacterial co-infection would likely be only explanation for a related abscess. -ENT consult: 1cc pus obtained from needle aspiration on (01/09); most likely matted lymph nodes from infectious mono with necrotic center; will refrain from I&D at this time; cont IV abx with further evaluation tomorrow, will consider oral abx and prolonged steroid taper (eg. prednisone 20mg x1wk, 10mg x1wk, 5mg x1wk) on discharge -neck mass gram stain: no WBC or organisms -neck mass culture: no growth to date -cont. Unasyn for aerobic coverage -cont. solu-Medrol 40mg q12 -warm compresses ordered for application to neck -tylenol and toradol prn for analgesic 2) Mononucleosis -positive on admission -denies any ongoing symptoms -supportive care 3) Leukocytosis - WBC 17 on admission, 20 (01/10) - ddx secondary to acute infection (viral vs. bacterial) vs. steroid use - strep negative - blood cultures no growth after 24 hours - continue IV Unasyn for anti-microbial coverage - trend CBC DVT ppx: SCD FEN/GI: Regular Code Status: Full Dispo: med/surg (2) Mononucleosis: (3) Leukocytosis: Admission and Anticipated Discharge Date Admission Date: January 09, 2021 Supervising Physician Co-Signing Physician Notes Patient seen and examined with PGY 1 Dr. Menjivar. Agree with history, exam findings, assessment and plan of care as outlined. 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 We reviewed his outside records that he had brought with him. He reports that he does have some pain in that right side of the neck especially with turning and moving his head. Denies fevers, chills. Denies sore throat, chest pain or dyspnea. Vital signs and nursing notes reviewed. Nontoxic-appearing. There is obvious asymmetry on the right side of the neck with swelling and mild overlying erythema of the right sternocleidomastoid muscle. There is a small fluctuant area in the mid part of the sternocleidomastoid. Right submandibular tender lymphadenopathy and tender lymph node right beneath the right sternocleidomastoid muscle. Labs and imaging reviewed. 1. Possible abscess of the right sternocleidomastoid muscle. He has been seen by ENT and was only able to obtain a small amount of pus with needle aspiration to the area. Possibly this is a phlegmon and not a true abscess. At [facility], where he was previously seen for this same issue, the culture initially showed gram-negative bacilli but final culture with no growth. Aspiration from yesterday gram stain without WBCs or organisms. Culture is pending. We will continue with IV Unasyn and Solu-Medrol. Appreciate ENT recommendations. 2. Recent mononucleosis infection. Unclear if this is directly related. 3. Leukocytosis. This is likely more related to the steroids that he is getting rather than true systemic infection. However, we will continue with antibiotics until we are able to determine whether the swollen area in the sternocleidomastoid is infectious or not. Dispo: pending clinical improvement. Subjective Patient seen at bedside. No acute complaints. Says pain is a little less when he turns his head from side to side. He thinks mass is shrinking. Review of Systems Review of Systems: Constitutional: denies fevers, chills HEENT: denies congestion, sore throat CV: denies chest pain, palpitations Resp: denies shortness of breath, cough GI: denies abdominal pain, nausea, vomiting, constipation, diarrhea Physical Exam Constitutional: WD/WN, vitals as above cooperative; no acute distress Eyes: PERRL, conjunctivae normal, anicteric sclerae Neck: trachea midline; no tracheal deviation Respiratory: normal respiratory effort, lungs clear to auscultation no cough Cardiovascular: RRR, no murmur, no edema Heart Sounds: normal S1 and normal S2 Gastrointestinal (Abdomen): normal bowel sounds, soft, nontender, no hepatosplenomegaly Musculoskeletal: Head/Neck/Chest: normocephalic and head atraumatic Skin: 4cm right sided neck mass along SCM, minimall TTP, small area of fluctuance in the center Neurologic: moves all extremities Psychiatric: A+Ox3, euthymic affect Results & Data Results & Data ([facility]) Vital Signs (Past 12 Hours) Vital Signs Temp Pulse Resp BP Pulse Ox 01/10/21 07:32 36.4 C L 61 18 109/62 97 01/09/21 22:07 36.9 C 83 17 122/67 99 Resident Activity Tracking Resident Involvement: Resident Care Provided Care Provided: Adult Hospital Medicine
[2021-01-11] MEDS: AMPICILLIN/SULBACTAM SOD 3,000 MG in 0.9 % SODIUM CHLORIDE 100 ML IV SCH ×2 (05:46→11:19)
[2021-01-11] MEDS: methylPREDNISolone 40 MG in SYRINGE 0 ML IV SCH (07:52)
--- NOTE | 2021-01-11 08:12 | Ears,Nose,Throat Progress Note ---
Date of Service January 11, 2021 Assessment & Plan (1) Infectious mononucleosis: (2) Abscess of neck: Plan: He continues to improve. Neck masses down to half the initial size. There is a small fluctuant area in the center that may be 1 or 2 cc. No growth at 48 hours on the cultures. Afebrile, essentially nontender in the neck. Canal feels the matted nodes which would be consistent with mono. If he continues to improve, I can avoid incision and drainage and packing with iodoform. Can switch to p.o. antibiotics. I instructed him strictly to come back immediately to me for incision and drainage if there is any increase in size or any other symptoms of abscess. Patient seems very reliable and understands. Admission and Anticipated Discharge Date Admission Date: January 09, 2021 Subjective This 20-year-old with right neck matted lymph nodes, possible abscess, continues to improve, afebrile, tolerating diet, minimal pain right neck. Physical Exam Constitutional: WD/WN, vitals as above Eyes: PERRL, conjunctivae normal, anicteric sclerae ENMT: external ear and nose normal, oropharynx normal Neck: Neck mass down to 4 cm. Small area of fluctuance in the center. Results & Data ([facility]) Vital Signs (Past 12 Hours) Vital Signs Temp Pulse Resp BP Pulse Ox 01/11/21 07:51 36.5 C 66 16 116/67 97 01/10/21 23:10 36.6 C 48 L 14 120/67 97 Laboratory Results Cultures show no growth at 48 hours.
[2021-01-11 09:44] LABS: Basophils # (auto) 0.03 K/uL (0-0.2); Basophils % (auto) 0.1 %; Hematocrit (blood only) 42.9 % (42-52); Hemoglobin 13.8 g/dL (14.0-18.0); Immature Granulocytes % (auto) 0.5 %; Lymphocytes # (auto) 2.13 K/uL (1.2-3.4); Lymphocytes % (auto) 9.8 %; Mean Corpuscular Hemoglobin 28.9 pg (25-34); Mean Corpuscular Hgb Conc 32.2 g/dL (32-36); Mean Corpuscular Volume 89.7 fL (80-100); Mean Platelet Volume 9.4 fL (7.4-10.4); Monocytes # (auto) 0.43 K/uL (0.11-0.59); Neutrophils # (auto) 18.95 K/uL (1.4-6.5); Neutrophils % (auto) 87.6 %; Platelet Count 355 K/uL (130-400); RDW Coefficient of Variation 12.7 % (11.5-14.5); RDW Standard Deviation 41.6 fL (36.4-46.3); Red Blood Count 4.78 M/uL (4.7-6.1); White Blood Count 21.64 K/uL (4.8-10.8)
[2021-01-11 10:21] LABS: BUN Creatinine Ratio 19.4 (10-20); Blood Urea Nitrogen 15 mg/dl (7-18); Calcium 9.6 mg/dl (8.5-10.1); Carbon Dioxide 29 mmol/L (21-32); Chloride 103 mmol/L (98-107); Creatinine Clr Calc Pharmacy 172.3 ml/min; Est GFR (African American) > 150.0 ml/min; Est GFR (Non-African American) 130.2 ml/min; Glucose 148 mg/dl (70-99); Potassium 3.7 mmol/L (3.5-5.1); Sodium 137 mmol/L (136-145)
--- NOTE | 2021-01-11 15:12 | Ultrasound Report ---
US soft tissue head and neck CLINICAL HISTORY: ? abscess right side of the neck COMPARISON STUDY: Neck CT January 09, 2021. TECHNIQUE: Sonography of the right neck was performed. FINDINGS: Note is made of a complex right neck fluid collection which corresponds to the finding on C T of January 09, 2021. This measures 8.3 x 3.2 x 6.2 cm. This has likely increased in size since prio r CT when it measured approximately 6.4 x 4.4 x 3.8 cm. This is predominantly within the anterior asp ect of the right sternocleidomastoid muscle, better depicted by CT. IMPRESSION: 8.3 x 3.2 x 6.2 cm complex fluid collection suggestive of an abscess within the right ne ck, likely increased in size since prior CT. This is predominantly within the anterior aspect of the right sternocleidomastoid muscle, better depicted by CT. ACT 112: Negative or not required by law. Electronically signed by: Law Gold M.D. 01/11/2021 3:11 PM
--- NOTE | 2021-01-11 17:12 | Discharge Summary ---
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 Of note, he is from the [place], [place] area. While at home over the break, he went to the [place] emergency department for general malaise and a right neck swelling. Due to being low staffed on a holiday week, he was sent to [facility] for further evaluation. At [facility], he did test positive for mononucleosis. A cat scan of his neck was obtained which showed a 3 x 3 x 4 cm mass. Law says a provider aspirated the mass - and only a small amount of green-tinted fluid came out. It was sent for culture - but he was never notified of a positive result. He was sent out on a course of Augmentin, which he has been taking as directed. He was also sent out on a Medrol dose pack, which ran out on 01/06/21. He returned to [place] for the resumption of classes. Law states that in the days since he stopped the Medrol - the R neck mass has slowly been enlarging and become progressively uncomfortable. He denies an difficulty breathing. He does report pain with swallowing, although he says food passes just fine (ie it does not get stuck). He has not had any fever/chills, cough/congestion or rashes. In the ED, he was afebrile with normal HR, BP and breathing. His WBC was elevated to 17 - however no differential was obtained. Hgb and platelets were WNL. Coags WNL. Monospot positive. Blood cultures obtained. Neck CT showed a 4.1 x 4.5 x 5.7cm mass consistent with a myositis of the R sternocleidomastoid with adjacent abscess. There was associated cervical LAD. Mass effect of the R internal jugular vein was noted, although it was patent. Does not appear to be communicating with mastoid or medistinum. He was given a dose of IV Unasyn, Toradol 30mg, Decadron 10mg and 1 liter of NSS. The ED provider spoke with ENT Dr. Goodwin who said the abscess would likely need excised, although not urgently. He was admitted for airway surveillance. Principal Diagnosis 1. Right Neck Abscess 2. Mononucleosis 3. Leukocytosis- likely steroid induced at this time Discharge Exam General: Resting comfortably in his hospital bed. Does not appear ill or toxic NAD. HEENT: Right side of the neck with flocculent swelling near the anterior cervical chain. Mildly tender. Overall he reports down in size by 50%. Anterior cervical chain lymphadenopathy Neck: No JVD. Negative hepatojugular reflex Cardiac: RRR without M/G/R Lungs: CTA without W/R/R Abdomen: Normoactive X4. Soft and nontender in all quadrants. Extremities: No peripheral clubbing cyanosis or edema Neuro: A&O X4 cranial nerves II through XII are grossly intact no focal neuro deficits Skin: No obvious skin lesions or rashes Psych: Appropriate affect pleasant and cooperative Discharge Data Allergies Allergy/AdvReac Type Severity Reaction Status Date / Time No Known Allergies Allergy Unverified 01/09/21 01:59 Consultations 01/09/21 01:28 ED Decision to Admit Stat 01/09/21 01:57 Consult Otolaryngology (Head and Neck) Routine Seen by ENT during this hospital stay who followed along throughout his hospitalization. Appreciate recommendations. Continued improvement with conservative management. Neck mass down half the initial size. No growth at 48 hours on blood cultures. Afebrile and hemodynamically stable. Canal feels the matted nodes which would be most consistent with mono. If he continues to improve, can avoid incision and drainage and packing with iodoform. Can switch to p.o. antibiotics. Patient was instructed to come back immediately for I&D should there be any increase in size or any other symptoms of the abscess. 01/11/21 17:02 Consult [facility] medical device sales representative Routine Ordered Studies 01/08/21 22:35 CT soft tissue neck w con Urgent 01/11/21 13:49 US soft tissue head and neck Urgent Soft Tissue Neck CT 01/08/21 22:35 CT soft tissue neck w con HISTORY: Right side neck mass. Hx mono. TECHNIQUE: Multiaxial CT images of the neck were performed following the use of intravenous contrast and reformatted in the sagittal and coronal plane. COMPARISON STUDY: None. FINDINGS: There is a lobular peripheral enhancing fluid collection within the right side of the neck which appears to be primarily located within the right sternocleidomastoid muscle. This measures approximately 6.4 x 4.4 x 3.8 cm. This likely represents an abscess. There is significant surrounding inflammatory change/edema within the right side of the neck as well as bilateral cervical lymphadenopathy, right greater than left. The dominant right cervical lymph node on image 55 measures 2.7 cm. There is mass effect from the abscess resulting in partial compression of the right internal jugular vein. However, this does not appear to involve or result in thrombosis of the internal jugular vein. The carotid arteries are widely patent. Mild hypertrophy of the adenoid tonsils. No significant mass effect or deviation of the airway. Airway appears patent. Prevertebral soft tissues and epiglottis are normal in thickness. The thyroid gland enhances normally. The parotid and submandibular glands enhance symmetrically. The visualized brain parenchyma and orbits are unremarkable. The lung apices are clear. No fractures within the visualized osseous structures. Right external jugular vein is not well opacified. IMPRESSION: 1. A 6.4 x 4.4 x 3.8 cm fluid collection within the right side the neck which primarily involves the sternocleidomastoid muscle. This likely represents an abscess. A necrotic mass or infected branchial cleft cyst is considered less likely but not entirely excluded. 2. Bilateral cervical lymphadenopathy, right greater than left. This is likely reactive. 3. Mild hypertrophy of the adenoid tonsils. ACT 112: Negative or not required by law. Electronically signed by: Efren Hung M.D. 01/09/2021 10:04 AM Head/Neck Ultrasound 01/11/21 13:49 US soft tissue head and neck CLINICAL HISTORY: ? abscess right side of the neck COMPARISON STUDY: Neck CT January 09, 2021. TECHNIQUE: Sonography of the right neck was performed. FINDINGS: Note is made of a complex right neck fluid collection which corresponds to the finding on CT of January 09, 2021. This measures 8.3 x 3.2 x 6.2 cm. This has likely increased in size since prior CT when it measured approximately 6.4 x 4.4 x 3.8 cm. This is predominantly within the anterior aspect of the right sternocleidomastoid muscle, better depicted by CT. IMPRESSION: 8.3 x 3.2 x 6.2 cm complex fluid collection suggestive of an abscess within the right neck, likely increased in size since prior CT. This is predominantly within the anterior aspect of the right sternocleidomastoid muscle, better depicted by CT. ACT 112: Negative or not required by law. Electronically signed by: Law Gold M.D. 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 1) Neck Abscess -presented to ER with enlarging right neck mass -records from [facility] requested -Soft Tissue Neck CT (12/31): necrotic soft tissue mass exerting mass effect on superficial and deep venous structures, partially indistinguishable from SCM, necrotic portion measures 3.9x2.8x3.6 cm. -Soft Tissue Neck CT (01/08): 4.1 x 4.5 x 5.7cm mass consistent with a myositis of the R sternocleidomastoid with adjacent abscess. -etiology of abscess uncertain; recent positive monospot, however, a bacterial co-infection would likely be only explanation for a related abscess. -ENT consult: Fine-needle aspiration of 1 cc of pus drained. Currently showing no growth to date but really inoculating. Patient was on empiric antibiotic therapy (Unasyn). Did not develop a rash in the setting of mononucleosis. Seen by ENT daily for comanagement who recommended avoiding I&D as would require larger surgical incision with packing and it was felt that this was more due to matted nodes with central necrosis rather than an obvious fluid collection Ultrasound of the area done that does show concern for fluid collection but again no walled off area amenable to drainage Patient has remained hemodynamically stable and afebrile He does have leukocytosis but in the setting of steroidssee below At this point in time, he is tolerating oral intake and the abscess seems to be improved by greater than 50% ENT feels comfortable that the patient can be managed conservatively We will discharge to home to follow-up with ENT within 1 week Patient will be continued on Augmentin (for adequate skin coverage as well). Patient has been on Unasyn in the setting of mono and has not developed a rash so I feel confident he would be fine with Augmentin He is encouraged to call ENT to be seen sooner should the abscess enlarge or he develop fevers or increasing pain 2) Mononucleosis -positive on admission -denies any ongoing symptoms -supportive care with continued tapering course of prednisone Advised no contact sports X 6 weeks. School excuse given 3) Leukocytosis - WBC 17 on admission, 20 (12/5) - ddx secondary to acute infection (viral vs. bacterial) vs. steroid use - strep negative - blood cultures no growth after 48 hours -Unasyn given while in house. Transition to Augmentin as outlined above (2) Mononucleosis: (3) Leukocytosis: Total Time Total Time Spent Total Time Spent (In Minutes): 35 Discharge Plan Discharge Items Patient Disposition: Home - Self-Care Reason For Visit: NECK MASS Discharge Diagnosis: 1. Right Neck (soft tissue) abscess 2. Mononucleosis Activity: As commented below Activity Comment: light- no contact sports x 6 weeks Non-emergency contact: Primary Care Provider and Specialist Call non-emergency contact if: you have any medication questions Follow-up/Referrals: [facility] [Primary Care Provider] - Diet: Regular Addtl Attending Provider Instructions: You were hospitalized with an abscess on the right side of the neck This is thought to be secondary to acute infectious mononucleosis (due to matted nodes) Unfortunately, no antibiotic regimen is effective for mononucleosis but would continue/complete a full course of antibiotics for possible secondary infection Follow-up with ENT within 1 week Return to the ED for any new or worsening symptoms As discussed, no contact sports X 6 weeks (from diagnosis of mono) due to risk of splenic rupture (after 02/13/2021) Pending Studies at Discharge: Yes Studies:: no growth at this point from fine needle aspiration from neck but reincubating. Final result pending Stand-Alone Forms: My [facility], Work/School Release Medications and DC Order Prescriptions: New prednisone 10 mg tablets,dose pack 10 mg PO DIRECTED Qty: 21 RF: 0 amoxicillin-pot clavulanate [Augmentin] 875-125 mg tablet 1 tab PO BID Qty: 14 RF: 0 Continued ibuprofen 200 mg Tablet 400 mg PO Q6H PRN (Reason: Pain) RF: 0 Discontinued Amoxicillan Clavulanic Acid 1 tab PO BID RF: 0 Discharge Orders: Discharge Order (Routine); Ordered 01/11/21 Ordered By: Stephany Tran Admission Data Admit Date/Time: 01/09/21 01:51 Attending Provider: Davey Werner Admit Provider: Lindy Argueta Primary Care Provider: [facility] Other Providers: Umm Goodwin ; Vee Ron Other Interventions: Discharge Summary Assessment (RN) Last Done: 01/11/21 17:04 Supervising Physician Co-Signing Physician Notes Patient seen and examined on the day of discharge. I agree with the discharge summary by Stephany MILNER. I have reviewed the chart including labs, imaging and plans for discharge. patient doing well, still with enlarged fluid collection right neck had US prior to discharge, this is still phegmon, not much more fluid to drain patient plans to follow up closely with ENT locally to reassess the fluid collection for any further drainage - Right neck phegmon, small fluid collection s/p biopsy, drainage at [facility] a week prior, recent [place] infection discharge home on Augmentin, follow up locally with ENT Coding Level of Care Code 05669 OBS Care - Discharge Diagnoses Neck abscess L02.11 Mononucleosis B27.90 Leukocytosis D72.829
== END 2021-01-11 17:33 | disposition home or self-care (01) ==
LOC: ED 18:35 → 3W 18:35 → SUATTDRO 01-09 01:51 → 3W 01-09 04:38